=== PATIENT | female | born 1960 | race Caucasian/White ===

== ENCOUNTER → 2018-12-16 | Outpatient (CLI) | payer OTHER ==
--- NOTE | 2018-12-16 13:20 | REP ---
Pain after trauma. PRIORS: None. There is a comminuted fracture involving the distal phalanx of the first digit with associated soft tissue swelling. Electronically Signed by Krishan Abreu DO 12/16/2018 04:45 P
== END ==
LOC: M WUC 10:52
PROVIDERS: ATTEND Physician Assistant
DX: S92.424A Nondisplaced fracture of distal phalanx of right great toe, initial encounter for closed fracture (principal); X58.XXXA Exposure to other specified factors, initial encounter; Y92.89 Other specified places as the place of occurrence of the external cause